=== PATIENT | female | born 1985 | race Caucasian/White ===

== ENCOUNTER 2017-01-24 13:30 | Emergency (ER) | payer OTHER ==
[~2017-01-24] VITALS: Ht 172.7 cm; Wt 69.0 kg
[2017-01-24 13:31] VITALS: BP 102/52; PULSE 78; RESP 18; TEMP 98.4; O2SAT 99
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
--- NOTE | 2017-01-24 14:36 | RADHPO ---
EXAM DATE/TIME: 01/24/2017 14:08 [facility] COMPARISON: No previous studies available for comparison. INDICATIONS : Patient has had pain on the distal lateral aspect of lower left leg for one week. Patient has swellin g and tenderness to the area. MEDICAL HISTORY : None. SURGICAL HISTORY : None. ENCOUNTER: Initial ACUITY: 1 week PAIN SCORE: 6/10 LOCATION: Left Lateral lower leg. FINDINGS: 3 views of the left tibia and fibula. Bone alignment within normal limits. No evidence of fracture. CONCLUSION: No evidence of fracture. Marciano Nash MD on January 24, 2017 at 14:33 Board Certified Radiologist. This report was verified electronically.
[2017-01-24 15:56] VITALS: BP 116/65; PULSE 70; RESP 14; O2SAT 97
--- NOTE | 2017-01-24 16:31 | RADHPO ---
EXAM DATE/TIME: 01/24/2017 16:02 [facility] COMPARISON: No previous studies available for comparison. INDICATIONS : Left leg pain and swelling. MEDICAL HISTORY : Gastroesophageal reflux disease. Herniated disc. Anxiety. SURGICAL HISTORY : Tubal ligation. section. ENCOUNTER: Initial ACUITY: 1 week PAIN SCORE: 3/10 LOCATION: Left leg. TECHNIQUE: Venous ultrasound of the leg was performed from the inguinal ligament to the proximal calf. Real-suman e, color Doppler and spectral tracing, compression and augmentation techniques were used. FINDINGS: There is normal compressibility of the deep venous system from the inguinal region to the proximal ca lf. No echogenic clot is seen in the lumen of the common femoral, femoral, popliteal, and posterior tibial veins. There is a normal response of the venous system to proximal and distal augmentation an d respiration. CONCLUSION: No evidence of left lower extremity DVT. Marciano Nash MD on January 24, 2017 at 16:27 Board Certified Radiologist. This report was verified electronically.
[2017-01-24 17:03] VITALS: BP 127/68
[2017-01-24] MEDS ORDERED: IBUP-232 PO (17:04)
== END 2017-01-24 17:14 | disposition home or self-care (01) ==
LOC: PHED 13:30
DX: M79.605 Pain in left leg (principal); K58.9 Irritable bowel syndrome, unspecified; K21.9 Gastro-esophageal reflux disease without esophagitis; F17.210 Nicotine dependence, cigarettes, uncomplicated
CPT/HCPCS: 73590; 93971

== ENCOUNTER 2017-06-19 12:26 | Emergency (ER) | payer OTHER ==
[~2017-06-19 12:26] MED LIST: IBUP-232 PO
[2017-06-19 12:27] VITALS: BP 105/66; PULSE 77; RESP 14; TEMP 98; O2SAT 100
--- NOTE | 2017-06-19 12:35 | PD ---
Physical Exam Time Seen by Provider: 12:32 Narrative Pt presents for evaluation of abdominal pain; began epigastric two days ago. Now is in the lower abdomen with severe cramping followed by diarrhea 7-8 times a day. No mirian red blood. Subjective Fever and chills. History of IBS. Voiding normal, except for one episode of hematuria 1 week ago. No abdominal surgeries. Data Data Last Documented VS Vital Signs Date Time Temp Pulse Resp B/P (MAP) Pulse Ox O2 Delivery O2 Flow Rate FiO2 06/19/17 19:32 06/19/17 17:41 73 16 100 Room Air 06/19/17 12:27 98.0 Orders Orders Complete Blood Count With Diff (06/19/17 12:35) Comprehensive Metabolic Panel (06/19/17 12:35) Lipase (06/19/17 12:35) Prothrombin Time / Inr (Pt) (06/19/17 12:35) Act Partial Throm Time (Ptt) (06/19/17 12:35) Urinalysis - C+S If Indicated (06/19/17 12:35) Iv Access Insert/Monitor (06/19/17 12:35) Ed Urine Pregnancytest Poc (06/19/17 12:35) Ct Abd/Pel W Iv Contrast(Rout) (06/19/17 ) Iohexol 350 Inj (Omnipaque 350 Inj) (06/19/17 14:46) Ketorolac Inj (Toradol Inj) (06/19/17 17:45) Al-Mag Hy-Si 40-40-4 Mg/Ml Liq (Mag-Al P (06/19/17 17:45) Lidocaine 2% Viscous (Xylocaine 2% Visco (06/19/17 17:45) Gc And Chlamydia Pcr (06/19/17 17:43) Wet Prep Profile (06/19/17 17:43) Labs Laboratory Tests Test 06/19/17 13:00 06/19/17 13:05 06/19/17 18:35 White Blood Count 6.0 TH/MM3 Red Blood Count 3.66 MIL/MM3 Hemoglobin 12.6 GM/DL Hematocrit 35.8 % Mean Corpuscular Volume 97.8 FL Mean Corpuscular Hemoglobin 34.3 PG Mean Corpuscular Hemoglobin Concent 35.1 % Red Cell Distribution Width 12.7 % Platelet Count 237 TH/MM3 Mean Platelet Volume 8.9 FL Neutrophils (%) (Auto) 76.4 % Lymphocytes (%) (Auto) 17.6 % Monocytes (%) (Auto) 5.3 % Eosinophils (%) (Auto) 0.5 % Basophils (%) (Auto) 0.2 % Neutrophils # (Auto) 4.6 TH/MM3 Lymphocytes # (Auto) 1.1 TH/MM3 Monocytes # (Auto) 0.3 TH/MM3 Eosinophils # (Auto) 0.0 TH/MM3 Basophils # (Auto) 0.0 TH/MM3 CBC Comment DIFF FINAL Differential Comment Prothrombin Time 10.3 SEC Prothromb Time International Ratio 0.9 RATIO Activated Partial Thromboplast Time 26.6 SEC Blood Urea Nitrogen 8 MG/DL Creatinine 0.51 MG/DL Random Glucose 107 MG/DL Total Protein 7.1 GM/DL Albumin 3.3 GM/DL Calcium Level 8.0 MG/DL Alkaline Phosphatase 74 U/L Aspartate Amino Transf (AST/SGOT) 71 U/L Alanine Aminotransferase (ALT/SGPT) 69 U/L Total Bilirubin 0.3 MG/DL Sodium Level 136 MEQ/L Potassium Level 5.3 MEQ/L Chloride Level 105 MEQ/L Carbon Dioxide Level 26.2 MEQ/L Anion Gap 5 MEQ/L Estimat Glomerular Filtration Rate 140 ML/MIN Lipase 34 U/L Urine Color LIGHT-YELLOW Urine Turbidity CLEAR Urine pH 7.0 Urine Specific [place] 1.004 Urine Protein NEG mg/dL Urine Glucose (UA) NEG mg/dL Urine Ketones NEG mg/dL Urine Occult Blood NEG Urine Nitrite NEG Urine Bilirubin NEG Urine Urobilinogen LESS THAN 2.0 MG/DL Urine Leukocyte Esterase NEG Urine RBC 1 /hpf Urine WBC 1 /hpf Urine Squamous Epithelial Cells 2 /hpf Urine Transitional Epithelial Cells <1 /hpf Urine Bacteria RARE /hpf Microscopic Urinalysis Comment CULT NOT INDICATED Clue Cells (Wet Prep) NONE SEEN Vaginal Trichomonas (Wet Prep) NONE SEEN Vaginal Yeast (Wet Prep) NONE SEEN Chlamydia trachomatis DNA (PCR) NOT DETECTED Neisseria gonorrhoeae DNA (PCR) NOT DETECTED MDM Medical Record Reviewed: Yes Supervised Visit with MADELYN: No Condition: Stable FaganAnnmarie negronrasheeda MARCELINO Jun 19, 2017 12:35
[2017-06-19 13:21] LABS: AUTOMATED NEUTROPHIL # 4.6 TH/MM3 (1.8-7.7); BASOPHIL % 0.2 % (0.0-2.0); EOSINOPHIL % 0.5 % (0.0-4.0); HEMATOCRIT 35.8 % (35.0-46.0); HEMO FLAGS DIFF FINAL; LYMPH % 17.6 % (9.0-44.0); LYMPHOCYTE # 1.1 TH/MM3 (1.0-4.8); MEAN CELL VOLUME 97.8 FL (80.0-100.0); MEAN CORPUSCULAR HEMOGLOBIN 34.3 PG (27.0-34.0); MEAN CORPUSCULAR HGB CONC 35.1 % (32.0-36.0); MONO % 5.3 % (0.0-8.0); NEUT % 76.4 % (16.0-70.0); PLATELET COUNT 237 TH/MM3 (150-450); RED BLOOD COUNT 3.66 MIL/MM3 (4.00-5.30); RED CELL DISTRIBUTION WIDTH 12.7 % (11.6-17.2)
[2017-06-19 13:33] LABS: BACTERIA, URINE RARE /hpf; BLOOD, URINE NEG (NEG); COMMENT (UR) CULT NOT INDICATED; CULTURE IF INDICATED CULT NOT INDICATED; GLUCOSE,URINE NEG (NEG); KETONE, URINE NEG (NEG); NITRITE,URINE NEG (NEG); SQUAMOUS EPITHELIAL CELL URINE 2 /hpf (0-5); TRANSITIONAL EPI CELLS, URINE <1 /hpf; URINE COLOR LIGHT-YELLOW (YELLW/STRAW)
[2017-06-19 13:33] LABS: APTT (PATIENT) 26.6 SEC (24.3-30.1); INTERNATIONAL NORMALIZED RATIO 0.9 RATIO; PROTHROMBIN TIME - PATIENT 10.3 SEC (9.8-11.6)
[2017-06-19 13:42] LABS: ALKALINE PHOSPHATASE 74 U/L (45-117); TOTAL BILIRUBIN ADULT 0.3 MG/DL (0.2-1.0)
[2017-06-19 13:45] LABS: ALT (GPT) 69 U/L (10-53); ANION GAP 5 MEQ/L (5-15); AST (GOT) 71 U/L (15-37); BICARBONATE 26.2 MEQ/L (21.0-32.0); BLOOD UREA NITROGEN 8 MG/DL (7-18); CHLORIDE 105 MEQ/L (98-107); GLOMERULAR FILTRATION RATE 140 ML/MIN (>89); POTASSIUM 5.3 MEQ/L (3.5-5.1); SODIUM (NA) 136 MEQ/L (136-145)
[2017-06-19] MEDS ORDERED: IOHEXOL 350 MG/ML 10 ML VIAL (for RAD DIAG) IVCONTRAST ONE (14:46)
--- NOTE | 2017-06-19 15:04 | RADRPT ---
EXAM DATE/TIME: 06/19/2017 14:43 [facility] COMPARISON: No previous studies available for comparison. INDICATIONS : Upper abdomen pain and diarrhea for three days. IV CONTRAST: 70 cc Omnipaque 350 (iohexol) IV ORAL CONTRAST: No oral contrast ingested. RADIATION DOSE: 5.60 CTDIvol (mGy) MEDICAL HISTORY : Inflammatory bowel disease. SURGICAL HISTORY : Tubal ligation. section. ENCOUNTER: Initial ACUITY: 3 days PAIN SCALE: 5/10 LOCATION: Bilateral upper quadrant TECHNIQUE: Volumetric scanning of the abdomen and pelvis was performed. Using automated exposure control and ad justment of the mA and/or kV according to patient size, radiation dose was kept as low as reasonably achievable to obtain optimal diagnostic quality images. DICOM format image data is available electro nically for review and comparison. FINDINGS: LOWER LUNGS: The visualized lower lungs are clear. LIVER: Homogeneous density without lesion. There is no dilation of the biliary tree. No calcified gallston es. SPLEEN: Normal size without lesion. PANCREAS: Within normal limits. KIDNEYS: Normal in size and shape. There is no mass, stone or hydronephrosis. ADRENAL GLANDS: Within normal limits. VASCULAR: There is no aortic aneurysm. BOWEL/MESENTERY: Colon is decompressed which accentuates the colonic wall. No evidence for obstruction, pneumatosis, o r free air. Appendix is visualized and normal in appearance. ABDOMINAL WALL: Within normal limits. RETROPERITONEUM: There is no lymphadenopathy. BLADDER: No wall thickening or mass. REPRODUCTIVE: Unremarkable for age. Trace amount of free fluid in the pelvis. INGUINAL: There is no lymphadenopathy or hernia. MUSCULOSKELETAL: Within normal limits for patient age. CONCLUSION: 1. No definitive CT findings to explain patient's symptoms. Normal appendix. 2. Trace free fluid in the pelvis, likely physiologic. Wenceslao Haro MD on June 19, 2017 at 14:58 Board Certified Radiologist. This report was verified electronically.
[2017-06-19] MEDS ORDERED: ALPR.5 PO (17:40)
[2017-06-19] MEDS ORDERED: PROT40TA PO (17:40)
[2017-06-19] MEDS ORDERED: HYDR-3580 PO (17:40)
[2017-06-19 17:41] VITALS: BP 110/76; PULSE 73; RESP 16; O2SAT 100
[2017-06-19] MEDS ORDERED: KETOROLAC TROMETHAMINE 30 MG/ML (IVP) VIAL IV PUSH ONE (17:45)
[2017-06-19] MEDS ORDERED: ALUMINUM/MAGNESIUM/SIMETH 30 ML CUP PO ONE (17:45)
[2017-06-19] MEDS ORDERED: LIDOCAINE VISCOUS 2% SOLN 15 ML UDC PO ONE (17:45)
--- NOTE | 2017-06-19 19:18 | PD ---
HPI Chief Complaint: Abdominal Pain Time Seen by Provider: 17:35 Travel History International Travel<30 days: No Contact w/Intl Traveler<30days: No Traveled to known affect area: No History of Present Illness HPI Patient is a 31 year old female who comes in complaining of abdominal pain. She says she was having upper abdominal pain, but then it moved to her lower abdomen last night. She says she was having severe pain, but it improved when she arrived at the hospital. She denies nausea or vomiting, however, says that food made her stomach hurt. She denies dysuria or vaginal discharge. She says she thinks she is due for her menstrual period. She denies fever or chills. PFSH Past Medical History Anxiety: Yes Diminished Hearing: No Gastrointestinal Disorders: Yes (?IBS/ANXIOUS STOMACH ) GERD: Yes Herniated Disk: Yes (MID/UPPER BACK ) ?: Not Tubal Ligation: Yes Past Surgical History Surgical History: No Previous Surgery Section: Yes (x2) Gynecologic Surgery: Yes ( X2, TUBAL LIGATION ) Social History Alcohol Use: Yes (OCC) Tobacco Use: Yes (09/21 PPD) Substance Use: No Allergies-Medications (Allergen,Severity, Reaction): Coded Allergies: codeine (Unverified Allergy, Intermediate, GI UPSET, 05/02/17) Reported Meds & Prescriptions Reported Meds & Active Scripts Active Reported Protonix (Pantoprazole Sodium) 40 Mg Tab 40 Mg PO DAILY Xanax (Alprazolam) 0.5 Mg Tab 0.5 Mg PO Q8H PRN Hydrocodone-Acetaminophen 7.5-325 mg Tab 1 Tab PO Q6H PRN Review of Systems Except as stated in HPI: all other systems reviewed are Neg General / Constitutional: No: Fever, Chills Eyes: No: Blurred Vision HENT: No: Headaches, Lightheadedness Cardiovascular: No: Chest Pain or Discomfort Respiratory: No: Shortness of Breath Gastrointestinal: Positive: Abdominal Pain, No: Nausea, Vomiting Genitourinary: No: Dysuria Skin: No Rash, No Change in Pigmentation Neurologic: No: Weakness, Dizziness Physical Exam Narrative GENERAL: Awake and alert, in no acute distress. SKIN: Focused skin assessment warm/dry. HEAD: Atraumatic. Normocephalic. EYES: Pupils equal and round. No scleral icterus. No injection or drainage. ENT: Mucous membranes pink and moist. NECK: Trachea midline. No JVD. CARDIOVASCULAR: Regular rate and rhythm. No murmur appreciated. RESPIRATORY: No accessory muscle use. Clear to auscultation. Breath sounds equal bilaterally. GASTROINTESTINAL: Abdomen soft, non-tender, nondistended. : Exam performed in the presence of a female nurse. Thin white discharge. No cervical lesions. No CMT. MUSCULOSKELETAL: No obvious deformities. No clubbing. No cyanosis. No edema. NEUROLOGICAL: Awake and alert. No obvious cranial nerve deficits. Motor grossly within normal limits. Normal speech. PSYCHIATRIC: Appropriate mood and affect; insight and judgment normal. Data Data Last Documented VS Vital Signs Date Time Temp Pulse Resp B/P (MAP) Pulse Ox O2 Delivery O2 Flow Rate FiO2 06/19/17 17:41 73 16 110/76 (87) 100 Room Air 06/19/17 12:27 98.0 Orders Orders Complete Blood Count With Diff (06/19/17 12:35) Comprehensive Metabolic Panel (06/19/17 12:35) Lipase (06/19/17 12:35) Prothrombin Time / Inr (Pt) (06/19/17 12:35) Act Partial Throm Time (Ptt) (06/19/17 12:35) Urinalysis - C+S If Indicated (06/19/17 12:35) Iv Access Insert/Monitor (06/19/17 12:35) Ed Urine Pregnancytest Poc (06/19/17 12:35) Ct Abd/Pel W Iv Contrast(Rout) (06/19/17 ) Iohexol 350 Inj (Omnipaque 350 Inj) (06/19/17 14:46) Ketorolac Inj (Toradol Inj) (06/19/17 17:45) Al-Mag Hy-Si 40-40-4 Mg/Ml Liq (Mag-Al P (06/19/17 17:45) Lidocaine 2% Viscous (Xylocaine 2% Visco (06/19/17 17:45) Gc And Chlamydia Pcr (06/19/17 17:43) Wet Prep Profile (06/19/17 17:43) Labs Laboratory Tests Test 06/19/17 13:00 06/19/17 13:05 06/19/17 18:35 White Blood Count 6.0 TH/MM3 Red Blood Count 3.66 MIL/MM3 Hemoglobin 12.6 GM/DL Hematocrit 35.8 % Mean Corpuscular Volume 97.8 FL Mean Corpuscular Hemoglobin 34.3 PG Mean Corpuscular Hemoglobin Concent 35.1 % Red Cell Distribution Width 12.7 % Platelet Count 237 TH/MM3 Mean Platelet Volume 8.9 FL Neutrophils (%) (Auto) 76.4 % Lymphocytes (%) (Auto) 17.6 % Monocytes (%) (Auto) 5.3 % Eosinophils (%) (Auto) 0.5 % Basophils (%) (Auto) 0.2 % Neutrophils # (Auto) 4.6 TH/MM3 Lymphocytes # (Auto) 1.1 TH/MM3 Monocytes # (Auto) 0.3 TH/MM3 Eosinophils # (Auto) 0.0 TH/MM3 Basophils # (Auto) 0.0 TH/MM3 CBC Comment DIFF FINAL Differential Comment Prothrombin Time 10.3 SEC Prothromb Time International Ratio 0.9 RATIO Activated Partial Thromboplast Time 26.6 SEC Blood Urea Nitrogen 8 MG/DL Creatinine 0.51 MG/DL Random Glucose 107 MG/DL Total Protein 7.1 GM/DL Albumin 3.3 GM/DL Calcium Level 8.0 MG/DL Alkaline Phosphatase 74 U/L Aspartate Amino Transf (AST/SGOT) 71 U/L Alanine Aminotransferase (ALT/SGPT) 69 U/L Total Bilirubin 0.3 MG/DL Sodium Level 136 MEQ/L Potassium Level 5.3 MEQ/L Chloride Level 105 MEQ/L Carbon Dioxide Level 26.2 MEQ/L Anion Gap 5 MEQ/L Estimat Glomerular Filtration Rate 140 ML/MIN Lipase 34 U/L Urine Color LIGHT-YELLOW Urine Turbidity CLEAR Urine pH 7.0 Urine Specific [place] 1.004 Urine Protein NEG mg/dL Urine Glucose (UA) NEG mg/dL Urine Ketones NEG mg/dL Urine Occult Blood NEG Urine Nitrite NEG Urine Bilirubin NEG Urine Urobilinogen LESS THAN 2.0 MG/DL Urine Leukocyte Esterase NEG Urine RBC 1 /hpf Urine WBC 1 /hpf Urine Squamous Epithelial Cells 2 /hpf Urine Transitional Epithelial Cells <1 /hpf Urine Bacteria RARE /hpf Microscopic Urinalysis Comment CULT NOT INDICATED Clue Cells (Wet Prep) NONE SEEN Vaginal Trichomonas (Wet Prep) NONE SEEN Vaginal Yeast (Wet Prep) NONE SEEN MDM Medical Decision Making Medical Screen Exam Complete: Yes Emergency Medical Condition: Yes Medical Record Reviewed: Yes Differential Diagnosis Mittelschmerz syndrome versus uterine cramps versus UTI versus BV versus cholecystitis versus [place] is Narrative Course Patient is a 31-year-old female comes in complaining of abdominal pain. There is no tenderness on exam. IV was established and labs sent. Labs show white blood cell count within normal limits, creatinine with in normal limits, urinalysis negative for UTI. LFTs are slightly elevated. Patient was informed of this. She does take hydrocodone regularly, advised that the Tylenol might be affecting her liver. Advised she should follow-up with her doctor regarding this. CT abdomen and pelvis performed shows no acute abnormalities. Wet prep is negative for infection. Patient given Toradol and a GI cocktail. She is asking to go home. She says she is now feeling hungry and is eating a laughy taffy in her stretcher. She will be discharged home. Advised to eat a bland diet and drink plenty of fluids. Advised to take ibuprofen as needed for pain. Advised to follow-up with her primary care doctor. Advised to return to the ED as needed for any worsening symptoms. Diagnosis Primary Impression: Abdominal pain Qualified Codes: R10.84 - Generalized abdominal pain Patient Instructions: Abdominal Pain (ED), General Instructions Additional Instructions: Follow-up with a primary care doctor. Take ibuprofen as needed for pain. He did bland diet. Drink plenty of fluids. Your liver enzymes are slightly elevated today, and this might be due to the Tylenol U take with the hydrocodone. Please see your doctor regarding this. Return to the ED as needed for any worsening symptoms. Disposition: DISCHARGE HOME Condition: Stable Jacey Pierre MD Jun 19, 2017 19:18
[2017-06-19 23:20] LABS: CHLAMYDIA PCR NOT DETECTED (NOT DETECT); NEISSERIA PCR NOT DETECTED (NOT DETECT)
== END 2017-06-19 19:52 | disposition home or self-care (01) ==
LOC: NEPD 12:26
DX: R10.84 Generalized abdominal pain (principal); F41.9 Anxiety disorder, unspecified; K58.9 Irritable bowel syndrome, unspecified; K21.9 Gastro-esophageal reflux disease without esophagitis; F17.200 Nicotine dependence, unspecified, uncomplicated; Z79.899 Other long term (current) drug therapy; Z88.5 Allergy status to narcotic agent
CPT/HCPCS: 74177; 80053; 81001; 83690; 84703; 85025; 85610; 85730; 87210; 87491; 87591; 96374; 99285; J1885; Q9967